=== PATIENT | male | born 1980 | race African-American/Black ===

== ENCOUNTER 2023-06-29 13:18 | Emergency (ER) | payer MEDICAID ==
[~2023-06-29] VITALS: Ht 175.3 cm; Wt 91.0 kg
[2023-06-29 13:34] VITALS: O2SAT 100
[2023-06-29] MEDS ORDERED: HYDROCODONE/ACETAMINOPHEN 5/325MG TABLET PO STA (15:25)
[2023-06-29] MEDS ORDERED: AMOX1TAB16 MT (15:28)
[2023-06-29] MEDS ORDERED: IBUP-2030 MT (15:28)
[2023-06-29 17:00] VITALS: BP 167/97; PULSE 54; RESP 18; TEMP 98.7
== END 2023-06-29 17:49 | disposition home or self-care (01) ==
LOC: ER 13:18
DX: K01.1 Impacted teeth (principal)
CPT/HCPCS: 99283